=== PATIENT | female | born 1990 | race Caucasian/White ===

== ENCOUNTER → 2019-05-25 | Outpatient (CLI) | payer BC ==
[2019-05-25 08:22] LABS: Basophils # (auto) 0 uL; Basophils % (auto) 0.6 % (0.0-2.0); Eosinophils # (auto) 0.1 uL; Eosinophils % (auto) 1.2 % (0.0-7.0); Hematocrit 44.4 % (36.0-46.0); Hemoglobin 14.8 g/dL (12.2-16.2); Lymphocytes # (auto) 1.8 uL; Lymphocytes % (auto) 34.2 % (10.0-50.0); Mean Corpuscular Hemoglobin 31.5 pg (28.0-32.0); Mean Corpuscular Hgb Conc. 33.3 g/dL (32.0-36.0); Mean Corpuscular Volume 94.4 fL (80.0-100.0); Monocytes # (auto) 0.4 uL; Monocytes % (auto) 7.9 % (0.0-12.0); Neutrophils % (auto) 56.1 % (37.0-80.0); Platelet Count (auto) 259 10^3/uL (140-450); Red Cell Distribution Width 13.2 % (11.8-14.3); White Blood Cell 5.3 10^3/uL (4.4-10.8)
[2019-05-25 08:39] LABS: Albumin 3.8 g/dL (3.4-5.0); Potassium 4.4 mmol/L (3.5-5.1)
[2019-05-25 08:46] LABS: BUN/Creatinine Ratio 13.8; Bilirubin, Total 0.4 mg/dL (0.2-1.0); Total Protein 7.5 g/dL (6.4-8.2)
== END | disposition home or self-care (01) ==
LOC: LAB 07:24
PROVIDERS: ATTEND Physician Assistant
DX: Z00.00 Encounter for general adult medical examination without abnormal findings (principal); R63.5 Abnormal weight gain; R53.83 Other fatigue; R87.811 Vaginal high risk human papillomavirus (HPV) DNA test positive; K21.9 Gastro-esophageal reflux disease without esophagitis
CPT/HCPCS: 36415; 80053; 80061; 82306; 84443; 85025

== ENCOUNTER 2019-10-08 21:32 | Inpatient (IN) | payer BC ==
[~2019-10-08] VITALS: Ht 157.5 cm; Wt 66.0 kg
[2019-10-08] MEDS ORDERED: SODIUM CHLORIDE 0.9% 1,000 ML IV ONE (22:00)
[2019-10-08 22:12] LABS: Urine WBC None Seen /hpf (0 - 5)
[2019-10-08] MEDS ORDERED: FAMOTIDINE 20 MG TAB PO ONE ×2 (22:15→22:30)
[2019-10-08] MEDS ORDERED: ONDANSETRON ODT 4 MG TAB PO ONE (22:15)
[2019-10-08 22:29] LABS: Urine Amorphous Crystal MANY /hpf (None Seen); Urine Bacteria NONE SEEN /hpf (None Seen); Urine Blood Negative /uL (Negative); Urine Mucus FEW (None Seen); Urine Specific Gravity 1.022 (1.001-1.035)
[2019-10-08] MEDS ORDERED: metroNIDAZOLE 500MG/100ML 100 ML IV ONE (23:30)
[2019-10-08] MEDS ORDERED: cefTRIAXone 1GM/50ML D5W 50 ML IV ONE (23:30)
[2019-10-09 00:19] LABS: Basophils # (auto) 0 10 ^3/uL (0-0.2); Basophils % (auto) 0.2 % (0.0-2.0); Eosinophils # (auto) 0 10 ^3/uL (0-0.8); Hematocrit 44.8 % (36.0-46.0); Hemoglobin 15.2 g/dL (12.2-16.2); Lymphocytes % (auto) 4.6 % (10.0-50.0); Mean Corpuscular Hemoglobin 31.8 pg (28.0-32.0); Mean Corpuscular Hgb Conc. 33.8 g/dL (32.0-36.0); Mean Corpuscular Volume 93.8 fL (80.0-100.0); Monocytes # (auto) 1.2 10 ^3/uL (0-1.3); Monocytes % (auto) 5.5 % (0.0-12.0); Neutrophils # (auto) 18.9 10 ^3/uL (1.6-8.6); Neutrophils % (auto) 89.7 % (37.0-80.0); Nucleated Red Blood Cells % 0.1 %; Platelet Count (auto) 281 10^3/uL (140-450); Red Blood Cells 4.78 10^6/uL (4.0-5.20); Red Cell Distribution Width 13.1 % (11.8-14.3); White Blood Cell 21.1 10^3/uL (4.4-10.8)
[2019-10-09] MEDS ORDERED: SODIUM CHLORIDE 0.9% 1,000 ML IV SCH ×2 (00:21→10:15)
[2019-10-09] MEDS ORDERED: ACETAMINOPHEN 325 MG TAB PO PRN (00:30)
[2019-10-09] MEDS ORDERED: MORPHINE SULF INJ 2 MG/ML SYRINGE 1ML IV PRN (00:30)
[2019-10-09] MEDS ORDERED: ONDANSETRON HCL 4 MG/2 ML VIAL IV PRN (00:30)
[2019-10-09] MEDS ORDERED: HYDROcodone-ACET 5/325MG TAB PO PRN (00:30)
[2019-10-09 00:38] LABS: Albumin 4.3 g/dL (3.4-5.0); Calcium 9.5 mg/dL (8.5-10.1); Potassium 3.6 mmol/L (3.5-5.1)
[2019-10-09 00:45] LABS: BUN/Creatinine Ratio 16.4; Bilirubin, Total 0.5 mg/dL (0.2-1.0); Total Protein 7.7 g/dL (6.4-8.2)
[2019-10-09 01:45] VITALS: BP 112/60
--- NOTE | 2019-10-09 01:45 | NUR ---
MS admit from ER MADDY CALZADA admitted to tele/MS. Patient oriented to ALEKSANDER KELLOGG RN primary RN, unit, room, bed, and unit policies regarding patient care and visiting hours. Patient weighed by bedscale and encouraged to call if they need something. Safety measures in place bed in lowest position, side rails up x2, and call light within reach. All questions and concerns addressed, patient verbalized understanding.
--- NOTE | 2019-10-09 01:50 | NUR ---
PATIENT STATES PAIN IS 2/10. PATIENT STATES PAIN IS TOLERABLE AND DOES NOT WANT MEDICATION. WILL CONTINUE TO MONITOR EVERY HOUR AND NEEDED.
[2019-10-09 01:52] LABS: INR 0.99 (0.9-1.15); Partial Thromboplastin Time 24.9 sec (23.64-32.05)
[2019-10-09] MEDS ORDERED: LEVO-185 PO (03:22)
[2019-10-09 05:00] VITALS: BP 109/69
[2019-10-09] MEDS: metroNIDAZOLE 500MG/100ML 100 ML IV SCH ×2 (06:08→13:50)
--- NOTE | 2019-10-09 07:30 | NUR ---
RECEIVED REPORT FROM NIGHT NURSE. PATIENT RESTING IN BED, NO DISTRESS NOTED. NPO FOR PROCEDURE.
[2019-10-09 07:58] LABS: Basophils # (auto) 0.1 10 ^3/uL (0-0.2); Basophils % (auto) 0.4 % (0.0-2.0); Eosinophils # (auto) 0 10 ^3/uL (0-0.8); Eosinophils % (auto) 0.2 % (0.0-7.0); Hematocrit 40.5 % (36.0-46.0); Hemoglobin 13.4 g/dL (12.2-16.2); Lymphocytes # (auto) 2.4 10 ^3/uL (0.4-5.4); Lymphocytes % (auto) 17.6 % (10.0-50.0); Mean Corpuscular Hemoglobin 31.4 pg (28.0-32.0); Mean Corpuscular Hgb Conc. 33.1 g/dL (32.0-36.0); Mean Corpuscular Volume 94.7 fL (80.0-100.0); Monocytes % (auto) 7.7 % (0.0-12.0); Neutrophils % (auto) 74.1 % (37.0-80.0); Nucleated Red Blood Cells % 0.1 %; Platelet Count (auto) 247 10^3/uL (140-450); Red Blood Cells 4.28 10^6/uL (4.0-5.20); Red Cell Distribution Width 13.1 % (11.8-14.3); White Blood Cell 13.5 10^3/uL (4.4-10.8)
[2019-10-09 08:00] VITALS: BP 125/53
--- NOTE | 2019-10-09 08:11 | NUR ---
PATIENT TAKEN DOWN FOR PROCEDURE.
[2019-10-09] MEDS ORDERED: BUPIVACAINE 0.25% INJ 50ML VIAL ONE (08:20)
[2019-10-09 08:29] LABS: Calcium 8.3 mg/dL (8.5-10.1); Potassium 3.9 mmol/L (3.5-5.1)
[2019-10-09 08:31] LABS: BUN/Creatinine Ratio 12.9
[2019-10-09] MEDS ORDERED: ROCURONIUM 10MG/ML 10ML VIAL IV ONE (08:33)
[2019-10-09] MEDS ORDERED: SUCCINYLCHOLINE CHLORIDE 20 MG/ML 10ML VIAL IV ONE (08:33)
[2019-10-09] MEDS ORDERED: PROPOFOL 10 MG/ML 20 ML IV ONE (08:38)
[2019-10-09] MEDS ORDERED: LIDOCAINE 2% (LOCAL ANESTH.) PF 5ml SDV ONE (08:38)
[2019-10-09] MEDS ORDERED: ONDANSETRON HCL 4 MG/2 ML VIAL ONE (08:38)
[2019-10-09] MEDS ORDERED: DexAMETHasone SOD PHOS 10MG/1ML VIAL INJ ONE (08:39)
[2019-10-09] MEDS ORDERED: KETOROLAC TROMETH 60MG/2ML VIAL ONE (08:39)
[2019-10-09] MEDS ORDERED: fentaNYL CITRATE 100 MCG/2 ML VL ONE (08:41)
[2019-10-09] MEDS ORDERED: MIDAZOLAM HCL 1MG/1ML-2 ML VIAL ONE (08:41)
[2019-10-09] MEDS ORDERED: ACETAMINOPHEN IV 100 ML IV ONE (08:59)
[2019-10-09] MEDS ORDERED: ACETAMINOPHEN IV 1000 MG/100ML (10MG/ML) IV ONE (09:00)
[2019-10-09] MEDS ORDERED: ceFAZolin 1GM/50ML 50 ML IV ONE (09:08)
[2019-10-09] MEDS ORDERED: NEOSTIGMINE 1 MG/ML INJ (10mg/10ML VIAL) ONE (10:03)
[2019-10-09] MEDS ORDERED: GLYCOPYRROLATE 0.2 MG/ML 1ML VIAL ONE (10:03)
[2019-10-09] MEDS ORDERED: levoFLOXacin 500MG 100 ML IV ONE (10:15)
[2019-10-09] MEDS ORDERED: HYDROmorphone HCL 2 MG/ML VL ONE (10:20)
[2019-10-09] MEDS: HYDROmorphone HCL 2 MG/ML VL IV PRN ×2 (10:24→10:37)
[2019-10-09] MEDS ORDERED: HYDROmorphone HCL 2 MG/ML VL IV PRN (10:30)
[2019-10-09] MEDS ORDERED: hydrALAZINE HCL 20 MG/ML VL IV PRN (10:30)
[2019-10-09] MEDS ORDERED: METOCLOPRAMIDE HCL 5MG/ml INJ 2ml VIAL IV PRN (10:30)
[2019-10-09] MEDS ORDERED: LABETALOL HCL 5 MG/ML 4ML SYRINGE IV PRN (10:30)
--- NOTE | 2019-10-09 11:20 | NUR ---
PATIENT BACK FROM OR. VITALS STABLE, NO COMPLAINTS OF PAIN, DISTRESS, WILL CONTINUE TO MONITOR.
[2019-10-09 12:00] VITALS: BP 104/55
--- NOTE | 2019-10-09 17:03 | NUR ---
Discharge instructions given as ordered. Encourage to follow up with PMD as instructed. All questions and concerns addressed. Patient verbalized understanding. Medication reconciliation form completed and copy given to patient. IV removed with catheter intact, pressure dressing applied. Patient taken to vehicle via wheelchair with all personal belongings, accompanied by staff member. No distress noted at time of departure.
[2019-10-10] MEDS ORDERED: levoFLOXacin 500MG 100 ML IV SCH (10:00)
== END 2019-10-09 17:07 | disposition home or self-care (01) | DRG 340 ==
LOC: EEVIPCON 21:32 → ER 21:32 → OVERFLOW 21:33 → CENTRAL 10-09 01:53
PROVIDERS: ADMIT Hospitalist; ATTEND Hospitalist
PROC: 0DTJ4ZZ Resection of Appendix, Percutaneous Endoscopic Approach (ICD-10-PCS; principal; 2019-10-09 09:13)
DX: K35.33 Acute appendicitis with perforation, localized peritonitis, and gangrene, with abscess (principal)
CPT/HCPCS: 36415; 71045; 74176; 80048; 80053; 81001; 82150; 83605; 83690; 84702; 85025; 85610; 85730; 86850; 86900; 86901; 88302; G0378; J0131; J0330; J0690; J0696; J1100; J1885; J2001; J2250; J2405; J2704; J3490; Q0162

== ENCOUNTER 2020-03-12 08:18 | Emergency (ER) | payer BC ==
[~2020-03-12] VITALS: Ht 157.5 cm; Wt 68.0 kg
[~2020-03-12 08:18] MED LIST: LEVO-185 PO
[2020-03-12 08:28] VITALS: BP 115/67
== END 2020-03-12 09:11 | disposition home or self-care (01) ==
LOC: EEVIPCON 08:18 → ER 08:18
DX: R51.9 Headache, unspecified (principal); Z20.828 Contact with and (suspected) exposure to other viral communicable diseases
CPT/HCPCS: 36415; 87426; 99283; C9803; U0003

== ENCOUNTER → 2020-03-14 | Outpatient (CLI) | payer OTHER ==
[2020-03-16 13:38] LABS: Hepatitis B Surface Antigen Negative (Negative)
[2020-03-16 13:49] LABS: Hepatitis B Surface Antibody Positive
== END | disposition home or self-care (01) ==
LOC: LAB 09:50
PROVIDERS: ATTEND Nurse Practitioner
DX: M79.644 Pain in right finger(s) (principal); W46.1XXD Contact with contaminated hypodermic needle, subsequent encounter
CPT/HCPCS: 36415; 86703; 86706; 86803; 87340

== ENCOUNTER → 2020-04-12 | Outpatient (CLI) | payer OTHER ==
[2020-04-13 10:34] LABS: Hepatitis B Surface Antibody Positive
[2020-04-13 13:40] LABS: Hepatitis B Surface Antigen Negative (Negative)
== END | disposition home or self-care (01) ==
LOC: LAB 10:36
PROVIDERS: ATTEND Nurse Practitioner
DX: M79.644 Pain in right finger(s) (principal)
CPT/HCPCS: 36415; 86703; 86706; 86803; 87340

== ENCOUNTER 2020-05-08 07:55 | Emergency (ER) | payer BC, OTHER ==
[~2020-05-08] VITALS: Ht 157.5 cm; Wt 54.4 kg
[2020-05-08 11:36] VITALS: BP 115/78
== END 2020-05-08 11:42 | disposition home or self-care (01) ==
LOC: ER 07:55 → EEVIPCON 07:55 → ER 11:39
DX: J06.9 Acute upper respiratory infection, unspecified (principal); Z20.822 Contact with and (suspected) exposure to COVID-19
CPT/HCPCS: 36415; 71045; 87426; 99284; C9803; U0003

== ENCOUNTER → 2020-08-01 | Outpatient (CLI) | payer OTHER | END | disposition home or self-care (01) | LOC: LAB 08:08 | PROVIDERS: ATTEND Nurse Practitioner Family | DX: Z77.21 Contact with and (suspected) exposure to potentially hazardous body fluids (principal) | CPT/HCPCS: 36415; 86703; 86706; 86803; 87340 ==